=== PATIENT | male | born 1985 | race Caucasian/White ===

== ENCOUNTER 2021-08-30 11:54 | Outpatient (REF) | payer MEDICAID, SELFPAY ==
[2021-08-30 13:53] LABS: COVID-19 Test Negative (Negative)
== END 2021-08-30 11:55 | disposition home or self-care (01) ==
LOC: HO.LAB 11:54
PROVIDERS: Visit Provider Internal Medicine
DX: Z20.822 Contact with and (suspected) exposure to COVID-19 (principal)
CPT/HCPCS: 36415; 87635; C9803

== ENCOUNTER 2022-08-15 14:37 | Outpatient (REF) | payer MEDICAID, SELFPAY ==
[2022-08-15 16:09] LABS: Prothrombin Time 11.9 SEC (10.0-13.1)
[2022-08-15 17:26] LABS: Alanine Aminotransferase 193 U/L (0-40); Albumin Level 4.9 g/dL (3.5-5.0); Alkaline Phosphatase 137 U/L (39-117); Aspartate Amino Transferase 271 U/L (5-37); Bilirubin Direct 0.2 mg/dL (0.0-0.5); Bilirubin Total 0.5 mg/dL (0.0-1.0); Gamma Glutamyl Transpeptidase 810 U/L (11-51); Iron 125 mcg/dL (45-160); Lipase 27 U/L (8-78); Percent Iron Saturation 38 % (15-50); Total Iron Binding Capacity 330 mcg/dL (228-428); Total Protein 8.8 g/dL (6.5-8.0); Unsaturated Iron Binding 205 ug/dL
[2022-08-15 18:12] LABS: Ferritin 1993 ng/mL (20-250)
[2022-08-16 09:00] LABS: HBS Num1 36.46 mIU/mL (0-7.99); HBsAGNum1 0.35 S/CO (0.00-0.99); Hepatitis A Antibody IgM 0.29 Index (0-0.79); Hepatitis B Core Antibody Nonreactive (Nonreactive); Hepatitis B Surface Antigen Negative (Negative); ~HepC Num1 0.15 S/CO (0.00-0.79); ~Hepatitis A Antibody IgM Nonreactive (Nonreactive); ~Hepatitis B Surface Antibody REACTIVE (Nonreactive); ~Hepatitis C Antibody Nonreactive (Nonreactive)
[2022-08-17 13:43] LABS: Alpha Fetoprotein 3.7 ng/mL (<6.1)
[2022-08-17 14:32] LABS: Ceruloplasmin 23 mg/dL (18-36)
[2022-08-21 16:49] LABS: Smooth Muscle Antibody <20 U (<20)
[2022-08-24 11:44] LABS: Mitochondrial Antibodies NEGATIVE (NEGATIVE)
== END 2022-08-15 14:38 | disposition home or self-care (01) ==
LOC: HO.LAB 14:37
PROVIDERS: PCP Registered Nurse; Visit Provider Nurse Practitioner Family
DX: R10.9 Unspecified abdominal pain (principal); K92.2 Gastrointestinal hemorrhage, unspecified; R79.89 Other specified abnormal findings of blood chemistry; R74.8 Abnormal levels of other serum enzymes; F10.10 Alcohol abuse, uncomplicated
CPT/HCPCS: 36415; 80076; 82105; 82390; 82728; 82977; 83540; 83690; 85610; 86015; 86255; 86256; 86704; 86706; 86709; 86803; 87340; 99202

== ENCOUNTER 2022-10-13 10:50 | Outpatient (REF) | payer MEDICAID, SELFPAY ==
[2022-10-13 16:44] LABS: Urine Cytology See Pathology rpt
== END 2022-10-13 10:51 | disposition home or self-care (01) ==
LOC: HO.LAB 10:50
PROVIDERS: PCP Registered Nurse; Visit Provider Nurse Practitioner Family
DX: R31.29 Other microscopic hematuria (principal)
CPT/HCPCS: 36415; 82565; 84520; 88112; 99202

== ENCOUNTER 2022-10-13 11:20 | Outpatient (REF) | payer MEDICAID, SELFPAY ==
[2022-10-13 14:30] LABS: Blood Urea Nitrogen 12 mg/dL (9-16); Estimated Glomerular Filt Rate > 60
== END 2022-10-13 11:21 | disposition home or self-care (01) ==
LOC: HO.10HDL 11:20
PROVIDERS: Visit Provider Nurse Practitioner Family
DX: R31.29 Other microscopic hematuria (principal)
CPT/HCPCS: 36415; 82565; 84520

== ENCOUNTER → 2022-10-17 11:50 | Outpatient (BNVA) | payer MEDICAID, SELFPAY | PROVIDERS: PCP Registered Nurse; Visit Provider Nurse Practitioner Family | DX: R74.01 Elevation of levels of liver transaminase levels (principal); F10.10 Alcohol abuse, uncomplicated; R10.9 Unspecified abdominal pain; Z02.1 Encounter for pre-employment examination | CPT/HCPCS: 36415; 86706; 86787; 99212 ==

== ENCOUNTER → 2022-11-13 10:19 | Outpatient (BNVA) | payer MEDICAID, SELFPAY | PROVIDERS: PCP Registered Nurse; Visit Provider Urology | DX: R31.29 Other microscopic hematuria (principal); F17.210 Nicotine dependence, cigarettes, uncomplicated | CPT/HCPCS: 52000; 99212 ==

== ENCOUNTER 2022-11-15 07:32 | Outpatient (REF) | payer MEDICAID, SELFPAY ==
--- NOTE | ~2022-11-15 | CT_ITS ---
EXAMINATION: CT ABDOMEN AND PELVIS WITHOUT AND WITH CONTRAST CLINICAL INFORMATION: Microscopic hematuria. COMPARISON: None available. TECHNIQUE: Noncontrast CT of the abdomen and pelvis is performed followed by split bolus contrast-enhanced images using 85 mL Omnipaque 350 contrast.? Postcontrast imaging is performed during the combined nephrogram and excretion phase. Sagittal and coronal reformatted images were obtained on the technologist's workstation for both the precontrast and postcontrast phases. This CT examination was performed using dose optimization techniques as appropriate, variously including the following: *Automated exposure control *Adjustment of mA and/or kV according to patient size (this includes techniques or standardized protocols for targeted exams where dose is matched to indication/reason for exam; i.e. extremities or head) *Use of iterative reconstruction technique DLP: 826 mGy-cm. FINDINGS: LUNG BASES: The visualized lung bases are unremarkable. LIVER, GALLBLADDER, AND BILIARY TREE: The liver is normal in size, shape, and attenuation. No focal hepatic lesion or biliary ductal dilatation is present. The gallbladder is unremarkable with no evidence of radiopaque gallstones, gallbladder wall thickening, or obvious pericholecystic inflammatory changes. PANCREAS: Unremarkable. SPLEEN: Unremarkable. ADRENAL GLANDS: Unremarkable. KIDNEYS AND URETERS: Precontrast, there is no radiopaque renal calculi seen. Postcontrast, there is symmetrical cortical nephrograms without any enhancing renal mass. Left kidney measures 11.4 cm in length and right kidney measures 10.2 cm in length. BLADDER: Unremarkable. GASTROINTESTINAL TRACT: There is scattered stool, gas seen throughout the colon without any distention. No mural thickening or pericolic fat stranding. The small bowel loops are normal caliber. Appendix is normal caliber. There is good opacification of bilateral kidney pelvises and ureters from excreted contrast without any intraluminal filling defect or distention. ABDOMINAL WALL: Small umbilical hernia containing fat is noted. LYMPH NODES: No aggressive lytic or sclerotic process seen. VASCULAR: Unremarkable. PELVIC VISCERA: The prostate is normal. No bladder wall thickening seen. OSSEUS STRUCTURES: Unremarkable. CT/CT urogram IMPRESSION: No radiopaque urolith or hydroureteronephrosis. The bladder is unremarkable. Mild constipation.
[2022-11-15] MEDS: iohexoL 350 MG/ML 100 ML INFUS..BTL IV (08:17)
== END 2022-11-15 07:33 | disposition home or self-care (01) ==
LOC: HO.CT 07:32
PROVIDERS: Visit Provider Nurse Practitioner Family
DX: R31.29 Other microscopic hematuria (principal)
CPT/HCPCS: 74178; Q9967

== ENCOUNTER 2022-11-24 07:47 | Outpatient (REF) | payer MEDICAID, SELFPAY ==
--- NOTE | ~2022-11-24 | US_ITS ---
EXAMINATION: US COMPLETE ABDOMEN WITH LIVER ELASTOGRAPHY CLINICAL INFORMATION: Transaminitis. COMPARISON: None available. TECHNIQUE: Real-time imaging of the abdominal viscera. Noninvasive ultrasound liver fibrosis assessment is performed using Sarita ElastPQ point quantification shear wave elastography (2D-SWE) with a C5-2 MHz transducer. Multiple elastography samples are obtained. FINDINGS: PANCREAS: Normal. The visualized pancreatic head and body are normal in appearance. The remainder of the pancreas is obscured from visualization by the overlying bowel gas. ABDOMINAL AORTA: The proximal, middle, and distal aortic segments are normal in caliber. INFERIOR VENA CAVA: Visualized portions are normal. LIVER: The liver demonstrates normal size, contour and increased echogenicity. No focal lesion or intrahepatic biliary duct dilatation. The right lobe measures 17.1 cm in length. The left lobe measures 12.4 cm in length. Portal flow is hepatopedal. Shear wave liver elastography median stiffness is 2.32 m/s (reference: normal median stiffness is 1.3 m/s or less). IQR/median stiffness to assess sampling precision is 0.06 (reference: good quality data set is IQR/median stiffness of 0.15 or less). GALLBLADDER: Gallbladder wall thickness is 0.2 cm. The gallbladder is physiologically distended without evidence of stones, sludge, polyps, wall thickening or pericholecystic fluid. COMMON BILE DUCT: Normal in caliber measuring 0.4 cm in diameter. RIGHT KIDNEY: Normal. No hydronephrosis. No renal calculi or focal parenchymal lesions. The kidney measures 10.3 cm in maximum dimension. LEFT KIDNEY: Normal. No hydronephrosis. No renal calculi or focal parenchymal lesions. The kidney measures 11.7 cm in maximum dimension. SPLEEN: Normal. The spleen measures 13.1 cm in maximum dimension. Mildly enlarged. FREE FLUID: None. US/US abdomen comp w elastography IMPRESSION: 1. Mild hepatic steatosis without focal lesion. Mild splenomegaly measuring 13.1 cm. 2. Liver elastography: Median liver stiffness measures 2.32 m/s suggestive of ACLD ruled in. REFERENCE: Society of Radiologists in Ultrasound Liver Stiffness Thresholds (2019): LIVER STIFFNESS THRESHOLDS: *Liver Stiffness equal or less than 1.3 m/s: High probability of being normal. *Liver Stiffness less than 1.7 m/s: In the absence of other known clinical signs, rules out compensated advanced chronic liver disease. *Liver Stiffness 1.7-2.1 m/s: Suggestive of compensated advanced chronic liver disease but need further test for confirmation. *Liver Stiffness over 2.1 m/s: Rules in compensated advanced chronic liver disease. *Liver Stiffness over 2.4 m/s: Suggestive of clinically significant portal hypertension. QUALITY OF DATA SET: *IQR/Median value equal or less than 0.15 implies a quality data set. *IQR/Median value over 0.15 implies a poor quality data set. SIGNIFICANT CHANGE FROM PRIOR EXAM: Significant change if liver stiffness measurement is 10% or greater from prior exam. OTHER CONSIDERATIONS: The stage of liver fibrosis may be overestimated in the setting of acute hepatitis, liver inflammation, elevated liver function tests, hepatic vascular congestion, obstructive cholestasis, non-fasting state, and infiltrative diseases such as amyloidosis and lymphoma. In some patients with NAFLD, the liver stiffness thresholds for compensated advanced chronic liver disease may be lower. In causes other than viral hepatitis and NAFLD, liver stiffness thresholds are not well established.
== END 2022-11-24 07:48 | disposition home or self-care (01) ==
LOC: HO.US 07:47
PROVIDERS: PCP Registered Nurse; Visit Provider Nurse Practitioner Family
DX: R79.89 Other specified abnormal findings of blood chemistry (principal)
CPT/HCPCS: 76705; 76981

== ENCOUNTER → 2023-01-01 09:46 | Outpatient (BNVA) | payer MEDICAID, SELFPAY | PROVIDERS: PCP Registered Nurse; Visit Provider Nurse Practitioner Family | DX: K70.0 Alcoholic fatty liver (principal); F10.10 Alcohol abuse, uncomplicated; R74.01 Elevation of levels of liver transaminase levels | CPT/HCPCS: 99212 ==

== ENCOUNTER 2023-01-11 06:30 | Outpatient (REF) | payer MEDICAID, SELFPAY ==
[2023-01-11 07:07] LABS: Estimated Average Glucose 91 mg/dL; Hemoglobin A1c % 4.8 %
[2023-01-11 07:17] LABS: Cholesterol 242 mg/dL; HDL Cholesterol 53 mg/dL; LDL Cholesterol Calculated 118 mg/dl; Triglycerides 358 mg/dL
[2023-01-11 07:21] LABS: Iron 169 mcg/dL (45-160); Percent Iron Saturation 49 % (15-50); Total Iron Binding Capacity 345 mcg/dL (228-428); Unsaturated Iron Binding 176 ug/dL
[2023-01-11 07:37] LABS: Ferritin 379 ng/mL (20-250)
== END 2023-01-11 06:31 | disposition home or self-care (01) ==
LOC: HO.LAB 06:30
PROVIDERS: PCP Registered Nurse; Visit Provider Registered Nurse
DX: E66.09 Other obesity due to excess calories (principal); Z68.31 Body mass index [BMI] 31.0-31.9, adult; R74.01 Elevation of levels of liver transaminase levels
CPT/HCPCS: 36415; 80061; 82728; 83036; 83540

== ENCOUNTER 2023-07-04 13:04 | Outpatient (REF) | payer MEDICAID, SELFPAY ==
[2023-07-04 16:11] LABS: Basophils Percent Auto 0.2 % (0-2); Eosinophils Percent Auto 0.2 % (0-4); Hematocrit 36.3 % (42.0-52.0); Hemoglobin 12.3 g/dl (14.0-18.0); Lymphocytes Absolute Auto 2.6 X10*3/uL (1.2-4.9); Lymphocytes Percent Auto 61.5 % (20-40); MANUAL DIFF FLAG SCAN; Mean Corpuscular HGB Conc 33.9 g/dl (31.0-36.0); Mean Corpuscular Hemoglobin 32.4 pg (27.0-33.0); Mean Corpuscular Volume 95.5 fL (80.0-98.0); Mean Platelet Volume 9.7 fL (9.4-12.4); Monocytes Absolute Auto 0.4 X10*3/uL (0.1-1.2); Monocytes Percent Auto 9.4 % (2-11); Neutrophils Absolute Auto 1.2 x10*3/uL (2.0-8.3); Neutrophils Percent Auto 28.7 % (45-73); Platelet Count 238 X10*3/uL (160-400); Red Cell Distribution Width 11.8 % (11.0-16.0); SCAN SMEAR FLAG 1; White Blood Count 4.2 X10*3/uL (4.8-10.8)
[2023-07-04 16:25] LABS: Alanine Aminotransferase 93 U/L (0-40); Albumin Level 4.6 g/dL (3.5-5.0); Alkaline Phosphatase 113 U/L (39-117); Anion Gap 15 (12-20); Aspartate Amino Transferase 102 U/L (5-37); Bilirubin Total 0.3 mg/dL (0.0-1.0); Blood Urea Nitrogen 7 mg/dL (9-16); Calcium 10.1 mg/dL (8.4-10.2); Carbon Dioxide 24 mmol/L (22-29); Chloride 104 mmol/L (96-108); Estimated Glomerular Filt Rate > 60; Glucose Random 95 mg/dL (60-115); Sodium 139 mmol/L (135-145); Total Protein 8.4 g/dL (6.5-8.0)
[2023-07-04 16:49] LABS: SLIDE REVIEW VERIFIED
[2023-07-05 10:39] LABS: Absolute CD3 Count 2242 cells/uL (840-3060); Absolute CD4 Count 791 cells/uL (490-1740); Absolute CD8 Count 1336 cells/uL (180-1170); Absolute Lymphocytes 2446 cells/uL (850-3900); CD4 CD8 Ratio 0.59 (0.86-5.00); Percent CD3 Cells 92 % (57-85); Percent CD4 Cells 32 % (30-61); Percent CD8 Cells 55 % (12-42)
[2023-07-06 13:18] LABS: RPR Rapid Plasma Reagin REACTIVE (NON-REACTIVE)
[2023-07-06 16:29] LABS: HIV RNA PCR Qn Copies NOT DETECTED copies/mL (NOT DETECTED); HIV RNA PCR Qn Log Copies NOT DETECTED (NOT DETECTED)
[2023-07-07 00:08] LABS: TS Negative Control Passed; TS Panel A 0; TS Panel B 0; TS Positive Control Passed; TSpotTB Negative (Negative)
== END 2023-07-04 13:05 | disposition home or self-care (01) ==
LOC: HO.HHCL 13:04
PROVIDERS: Visit Provider Internal Medicine
DX: B20 Human immunodeficiency virus [HIV] disease (principal)
CPT/HCPCS: 36415; 80053; 85025; 86359; 86360; 86481; 86592; 86593; 87536

== ENCOUNTER 2023-07-06 09:10 | Outpatient (REF) | payer MEDICAID, SELFPAY ==
[2023-07-06 11:30] LABS: Appearance Urine Clear; Color Urine Yellow; Glucose Urine UA Negative (Negative); Leukocyte Esterase Urine Negative (Negative); Nitrite Urine Negative (Negative); PH 6.5 (5.0-9.0); Specific Gravity - Urine <= 1.005 (1.005-1.025); UMIC TRIGGER UA YES; Urine Blood Large (3+) (Negative); Urine Ketones Negative (Negative); Urine Protein Negative (Neg-Trace)
[2023-07-06 11:34] LABS: Bacteria Urine None Seen (None Seen); Hyaline Casts Urine 0-2 /LPF (0-2); RBC Urine >20 /HPF (0-2); Squamous Epithelial Cell Urine 0-2 /HPF (0-2); WBC Urine 0-5 /HPF (0-5)
[2023-07-06 12:00] LABS: Cholesterol 227 mg/dL (<200); HDL Cholesterol 65 mg/dL (>40); LDL Cholesterol Calculated 130 mg/dL (<100); Triglycerides 162 mg/dL (<150)
[2023-07-06 12:48] LABS: Reflex LDLD? No
== END 2023-07-06 09:11 | disposition home or self-care (01) ==
LOC: HO.HHCL 09:10
PROVIDERS: Visit Provider Internal Medicine
DX: B20 Human immunodeficiency virus [HIV] disease (principal)
CPT/HCPCS: 36415; 80061; 81001

== ENCOUNTER 2024-03-07 10:16 | Outpatient (REF) | payer MEDICAID, SELFPAY ==
[2024-03-07 11:14] LABS: MANUAL DIFF FLAG NO
[2024-03-07 11:29] LABS: Basophils Percent Auto 0.2 % (0-2); Eosinophils Percent Auto 0.2 % (0-4); Hematocrit 36.2 % (42.0-52.0); Hemoglobin 12.8 g/dl (14.0-18.0); Imm Gran Abs Auto 0.01 X10*3/uL (0.00-0.03); Imm Gran Pct Auto 0.2 % (0.0-0.4); Lymphocytes Absolute Auto 2.9 X10*3/uL (1.2-4.9); Lymphocytes Percent Auto 58.3 % (20-40); Mean Corpuscular HGB Conc 35.4 g/dl (31.0-36.0); Mean Corpuscular Hemoglobin 33.8 pg (27.0-33.0); Mean Corpuscular Volume 95.5 fL (80.0-98.0); Monocytes Absolute Auto 0.4 X10*3/uL (0.1-1.2); Neutrophils Absolute Auto 1.7 x10*3/uL (2.0-8.3); Neutrophils Percent Auto 33.1 % (45-73); Platelet Count 159 X10*3/uL (160-400); Red Blood Count 3.79 X10*6/uL (4.60-5.80); Red Cell Distribution Width 12.4 % (11.0-16.0)
[2024-03-07 11:38] LABS: Alanine Aminotransferase 97 U/L (0-40); Albumin Level 4.7 g/dL (3.5-5.0); Alkaline Phosphatase 127 U/L (39-117); Anion Gap 17 (12-20); Aspartate Amino Transferase 182 U/L (5-37); Bilirubin Total 0.7 mg/dL (0.0-1.0); Blood Urea Nitrogen 6 mg/dL (9-16); Calcium 10.2 mg/dL (8.4-10.2); Carbon Dioxide 24 mmol/L (22-29); Chloride 98 mmol/L (96-108); Estimated Glomerular Filt Rate > 60; Glucose Random 96 mg/dL (60-115); Potassium 4.3 mmol/L (3.3-5.1); Sodium 135 mmol/L (135-145); Total Protein 8.9 g/dL (6.5-8.0)
[2024-03-07 14:00] LABS: CT PCR NOT DETECTED (Not Detect.); NG PCR NOT DETECTED (Not Detect.)
[2024-03-09 15:54] LABS: HIV RNA PCR Qn Copies 94 copies/mL (NOT DETECTED); HIV RNA PCR Qn Log Copies 1.97 (NOT DETECTED)
[2024-03-10 22:24] LABS: Absolute CD3 Count 2753 cells/uL (840-3060); Absolute CD4 Count 891 cells/uL (490-1740); Absolute CD8 Count 1820 cells/uL (180-1170); Absolute Lymphocytes 3056 cells/uL (850-3900); CD4 CD8 Ratio 0.49 (0.86-5.00); Percent CD3 Cells 90 % (57-85); Percent CD4 Cells 29 % (30-61); Percent CD8 Cells 60 % (12-42)
== END 2024-03-07 10:17 | disposition home or self-care (01) ==
LOC: HO.HHCL 10:16
PROVIDERS: Visit Provider Internal Medicine
DX: Z21 Asymptomatic human immunodeficiency virus [HIV] infection status (principal)
CPT/HCPCS: 36415; 80053; 85025; 86359; 86360; 87491; 87536; 87591

== ENCOUNTER 2024-07-10 16:33 | Outpatient (REF) | payer MEDICAID, SELFPAY ==
[2024-07-16 15:53] LABS: C. Trachomatis RNA TMA, Throat NOT DETECTED; N. gonorrhoeae RNA TMA, Throat NOT DETECTED
[2024-07-16 16:13] LABS: C.Trachomatis RNA TMA, Rectal NOT DETECTED; N.Gonorrhoeae RNA TMA, Rectal NOT DETECTED
== END 2024-07-10 16:34 | disposition home or self-care (01) ==
LOC: HO.HHCLNP 16:33
PROVIDERS: Visit Provider Student in an Organized Health Care Education/Training Program
DX: Z00.00 Encounter for general adult medical examination without abnormal findings (principal)
CPT/HCPCS: 87491; 87591; 88112

== ENCOUNTER 2024-07-17 09:16 | Outpatient (REF) | payer MEDICAID, SELFPAY ==
[2024-07-17 11:20] LABS: Hematocrit 40.4 % (42.0-52.0); Hemoglobin 13.5 g/dl (14.0-18.0); Mean Corpuscular HGB Conc 33.4 g/dl (31.0-36.0); Mean Corpuscular Volume 98.8 fL (80.0-98.0); Mean Platelet Volume 9.1 fL (9.4-12.4); Platelet Count 265 X10*3/uL (160-400); Red Blood Count 4.09 X10*6/uL (4.60-5.80); Red Cell Distribution Width 11.6 % (11.0-16.0); White Blood Count 5.5 X10*3/uL (4.8-10.8)
[2024-07-17 11:40] LABS: Alanine Aminotransferase 61 U/L (0-40); Albumin Level 4.2 g/dL (3.5-5.0); Alkaline Phosphatase 120 U/L (39-117); Anion Gap 11 (12-20); Aspartate Amino Transferase 126 U/L (5-37); Bilirubin Total 0.3 mg/dL (0.0-1.0); Blood Urea Nitrogen 5 mg/dL (9-16); Carbon Dioxide 32 mmol/L (22-29); Chloride 104 mmol/L (96-108); Cholesterol 222 mg/dL (<200); Estimated Glomerular Filt Rate > 60; Glucose Random 95 mg/dL (60-115); HDL Cholesterol 44 mg/dL (>40); LDL Cholesterol Calculated 132 mg/dL (<100); Potassium 4.1 mmol/L (3.3-5.1); Sodium 143 mmol/L (135-145); Total Protein 8.3 g/dL (6.5-8.0); Triglycerides 233 mg/dL (<150)
[2024-07-17 11:47] LABS: HBS Num1 39.33 mIU/mL (0-7.99); HBsAGNum1 0.31 S/CO (0.00-0.99); Hepatitis B Core Antibody Nonreactive (Nonreactive); Hepatitis B Surface Antigen Negative (Negative); ~HepC Num1 0.26 S/CO (0.00-0.79); ~Hepatitis B Surface Antibody REACTIVE (Nonreactive); ~Hepatitis C Antibody Nonreactive (Nonreactive)
[2024-07-17 11:53] LABS: Syphilis Screen Reactive (Nonreactive)
[2024-07-17 12:01] LABS: TSH reflex Free T4 1.97 uIU/mL (0.32-4.0); Vitamin D 25-OH Total 75.9 ng/mL (>30)
[2024-07-17 12:04] LABS: Folate 11.4 ng/mL (> or = 4.0); Vitamin B12 420 pg/mL (200-900)
[2024-07-17 12:14] LABS: Creatinine Urine 20.81 mg/dL; Microalbumin Urine < 5.0 mg/L
[2024-07-17 14:12] LABS: Estimated Average Glucose 88 mg/dL; Hemoglobin A1C 93.4733 umol/L; Hemoglobin A1c % 4.7 % (<6.0); Total Hemoglobin (HGBA1C) 3403.6845 umol/L
[2024-07-17 18:46] LABS: CT PCR NOT DETECTED (Not Detect.); NG PCR NOT DETECTED (Not Detect.)
[2024-07-25 08:07] LABS: RPR Quantitative Reactive 1:1 (Nonreactive)
[2024-07-25 08:08] LABS: T.Pallidum Particle Agg Test Reactive (Nonreactive)
== END 2024-07-17 09:17 | disposition home or self-care (01) ==
LOC: HO.HHCL 09:16
PROVIDERS: Visit Provider Student in an Organized Health Care Education/Training Program
DX: Z00.00 Encounter for general adult medical examination without abnormal findings (principal)
CPT/HCPCS: 36415; 80053; 80061; 82043; 82306; 82570; 82607; 82746; 83036; 84443; 85027; 86592; 86704; 86706; 86780; 86803; 87340; 87491; 87591

== ENCOUNTER 2024-07-24 07:57 | Outpatient (REF) | payer MEDICAID, SELFPAY | END 2024-07-24 07:58 | disposition home or self-care (01) | LOC: HO.US 07:57 | PROVIDERS: PCP Student in an Organized Health Care Education/Training Program; Visit Provider Student in an Organized Health Care Education/Training Program | DX: F10.10 Alcohol abuse, uncomplicated (principal) | CPT/HCPCS: 76700; 76981 ==

== ENCOUNTER 2024-09-02 08:32 | Outpatient (REF) | payer MEDICAID, SELFPAY ==
[2024-09-02 11:19] LABS: Basophils Percent Auto 0.6 % (0-2); Eosinophils Percent Auto 0.4 % (0-4); Hematocrit 36.3 % (42.0-52.0); Hemoglobin 12.5 g/dl (14.0-18.0); Imm Gran Abs Auto 0.01 X10*3/uL (0.00-0.03); Imm Gran Pct Auto 0.2 % (0.0-0.4); Lymphocytes Absolute Auto 3.3 X10*3/uL (1.2-4.9); Lymphocytes Percent Auto 60.3 % (20-40); MANUAL DIFF FLAG SCAN; Mean Corpuscular HGB Conc 34.4 g/dl (31.0-36.0); Mean Corpuscular Hemoglobin 33.8 pg (27.0-33.0); Mean Corpuscular Volume 98.1 fL (80.0-98.0); Mean Platelet Volume 9.3 fL (9.4-12.4); Monocytes Absolute Auto 0.4 X10*3/uL (0.1-1.2); Neutrophils Absolute Auto 1.7 x10*3/uL (2.0-8.3); Neutrophils Percent Auto 31.5 % (45-73); Platelet Count 265 X10*3/uL (160-400); Red Cell Distribution Width 12.9 % (11.0-16.0); SCAN SMEAR FLAG 1; White Blood Count 5.4 X10*3/uL (4.8-10.8)
[2024-09-02 11:36] LABS: Appearance Urine Clear; Color Urine Yellow; Glucose Urine UA Negative (Negative); Leukocyte Esterase Urine Negative (Negative); Nitrite Urine Negative (Negative); PH 6.5 (5.0-9.0); Specific Gravity - Urine <= 1.005 (1.005-1.025); UMIC TRIGGER UACC YES; Urine Blood Small (1+) (Negative); Urine Ketones Negative (Negative); Urine Protein Negative (Neg-Trace)
[2024-09-02 11:51] LABS: Bacteria Urine None Seen (None Seen); Hyaline Casts Urine 0-2 /LPF (0-2); Squamous Epithelial Cell Urine 0-2 /HPF (0-2); WBC Urine 0-5 /HPF (0-5)
[2024-09-02 11:57] LABS: SLIDE REVIEW VERIFIED
[2024-09-02 12:03] LABS: Albumin Level 4.3 g/dL (3.5-5.0); Alkaline Phosphatase 158 U/L (39-117); Anion Gap 12 (12-20); Aspartate Amino Transferase 212 U/L (5-37); Bilirubin Total 0.4 mg/dL (0.0-1.0); Blood Urea Nitrogen 8 mg/dL (9-16); Calcium 9.2 mg/dL (8.4-10.2); Carbon Dioxide 29 mmol/L (22-29); Chloride 105 mmol/L (96-108); Estimated Glomerular Filt Rate > 60; Glucose Random 96 mg/dL (60-115); Potassium 4.2 mmol/L (3.3-5.1); Sodium 142 mmol/L (135-145); Total Protein 8.5 g/dL (6.5-8.0)
[2024-09-02 12:29] LABS: Alanine Aminotransferase 136 U/L (0-40)
[2024-09-03 13:13] LABS: HIV RNA PCR Qn Copies NOT DETECTED copies/mL (NOT DETECTED); HIV RNA PCR Qn Log Copies NOT DETECTED (NOT DETECTED)
[2024-09-05 11:43] LABS: TS Negative Control Passed; TS Panel A 2; TS Panel B 0; TS Positive Control Passed; TSpotTB Negative (Negative)
[2024-09-05 15:59] LABS: Absolute CD3 Count 2913 cells/uL (840-3060); Absolute CD4 Count 915 cells/uL (490-1740); Absolute CD8 Count 1824 cells/uL (180-1170); Absolute Lymphocytes 3284 cells/uL (850-3900); Percent CD3 Cells 89 % (57-85); Percent CD4 Cells 28 % (30-61); Percent CD8 Cells 56 % (12-42)
== END 2024-09-02 08:33 | disposition home or self-care (01) ==
LOC: HO.HHCL 08:32
PROVIDERS: Visit Provider Internal Medicine
DX: Z21 Asymptomatic human immunodeficiency virus [HIV] infection status (principal)
CPT/HCPCS: 36415; 80053; 81001; 85025; 86359; 86360; 86481; 87536

== ENCOUNTER 2025-02-16 09:15 | Outpatient (REF) | payer MEDICAID, SELFPAY ==
[2025-02-16 16:50] LABS: Urine Cytology See Pathology rpt
== END 2025-02-16 09:16 | disposition home or self-care (01) ==
LOC: HO.LAB 09:15
PROVIDERS: PCP Student in an Organized Health Care Education/Training Program; Visit Provider Urology
DX: R31.29 Other microscopic hematuria (principal); Z13.9 Encounter for screening, unspecified
CPT/HCPCS: 81003; 88112

== ENCOUNTER 2025-02-16 09:15 | Outpatient (AMB) | payer MEDICAID, SELFPAY ==
--- NOTE | 2025-02-16 09:36 | MHC.OFFVIS ---
Intake Visit Reasons: microscopic hematuria Intake Note: Patient presents to office for microscopic hematuria Urology medications: none blood thinners: none Allergies: penicillan and augmentin? Real Estate Investment Analyst Required: No Accompanied by: Self / Same As Patient Allergies Penicillins [PENICILLINS] Allergy (Severe, Verified 02/16/25 09:37) DIFFICULTY BREATHING penicillin V Allergy (Unknown, Verified 02/16/25 09:37) Unknown From AUGMENTIN Allergy (Unknown, Uncoded 01/01/23 10:01) UNKNOWN From Augmentin Allergy (Unknown, Uncoded 01/01/23 10:01) UNKNOWN HPI Comments Details: History of Present Illness - The patient is a 39-year-old male presenting with hematuria. - Hematuria is not visible during urination but detected upon testing. - Cystoscopy performed two years ago showed no abnormalities. - Family history of bladder cancer with grandfather recently diagnosed. Urinary Symptoms Review - Hematuria detected upon testing, not visible during urination. - Nocturia reported, with the patient getting up twice at night to urinate. - No dysuria or urinary straining reported. Results - Previous cystoscopy two years ago showed no abnormalities. Discussion Notes I discussed with the patient the plan to send the urine sample for cytology and order a new CT scan to evaluate the kidneys and bladder. I explained the process of scheduling these tests and the importance of checking kidney function with blood work before the CT scan with IV contrast. We also reviewed the previous cystoscopy results, which were normal, and addressed the family history of bladder cancer. I ensured the patient understood the follow-up steps and encouraged him to ask any questions. Plan - Order urine cytology to evaluate for malignant cells. - Schedule a CT scan with IV contrast to assess the kidneys and bladder. - Conduct blood work to evaluate kidney function prior to the CT scan. - Review previous cystoscopy results, which were normal, and consider repeat cystoscopy if necessary. Patient Instructions - Follow up with the lab for urine cytology results. - Schedule and complete the CT scan as instructed. - Complete blood work to check kidney function before the CT scan. - Report any new or worsening symptoms to the clinic. Patient was informed and verbally consented to the use of an ambient scribe for clinic note documentation during this visit. [facility] Medical History HIV (human immunodeficiency virus infection) ETOH abuse Transaminitis Family History Mother HTN (hypertension) Cancer Social History Household Members: Other Alcohol intake: current Patient Tobacco Use Status: Former Tobacco user Cigarettes Per Day: 2 Results AMB Urinalysis, Automated UA Leukoctes 0 Cesar/uL Last Edit by Roxann Holman on 02/16/25 13:42 UA Nitrite Negative Last Edit by Roxann Holman on 02/16/25 13:42 UA Urobilinogen 70 mg/dL Last Edit by Roxann Holman on 02/16/25 13:42 UA Protein 1 mg/dL Last Edit by Roxann Holman on 02/16/25 13:42 UA pH 6.0 Last Edit by Roxann Holman on 02/16/25 13:42 UA Blood 200 Yimi/uL Last Edit by Roxann Holman on 02/16/25 13:42 UA Specific [place] 1.015 Last Edit by Roxann Holman on 02/16/25 13:42 UA Ketone Negative Last Edit by Roxann Holman on 02/16/25 13:42 UA Bilirubin 0 mg/dL Last Edit by Roxann Holman on 02/16/25 13:42 UA Glucose 0 mg/dL Last Edit by Roxann Holman on 02/16/25 13:42 Results Reviewed Results Reviewed: Laboratory Last Values Urine pH (Auto) 6.0 02/16/25 13:37 Specific [place] (Auto) 1.015 02/16/25 13:37 Urine Protein (Auto) 1 mg/dL 02/16/25 13:37 Glucose (UA)(Auto) 0 mg/dL 02/16/25 13:37 Urine Ketones (Auto) Negative 02/16/25 13:37 Urine Blood (Auto) 200 Yimi/uL 02/16/25 13:37 Urine Nitrite (Auto) Negative 02/16/25 13:37 Urine Bilirubin (Auto) 0 mg/dL 02/16/25 13:37 Urine Urobilinogen (Auto) 70 mg/dL 02/16/25 13:37 Leukocyte Esterase (Auto) 0 Cesar/uL 02/16/25 13:37 Assessment & Plan Assessment & Plan Orders: Orders AMB Urinalysis Automated Today Z13.9 - Encounter for screening, unspecified Urine Cytology Today R31.29 - Other microscopic hematuria Coding
== END 2025-02-16 10:06 | disposition home or self-care (01) ==
LOC: HO.HUSH 09:16
PROVIDERS: PCP Student in an Organized Health Care Education/Training Program; Visit Provider Urology
DX: Z13.9 Encounter for screening, unspecified (principal)

== ENCOUNTER 2025-02-16 10:28 | Outpatient (REF) | payer MEDICAID, SELFPAY ==
[2025-02-16 11:23] LABS: MANUAL DIFF FLAG NO
[2025-02-16 11:35] LABS: Basophils Percent Auto 0.5 % (0-2); Eosinophils Percent Auto 0.5 % (0-4); Hematocrit 36.3 % (42.0-52.0); Hemoglobin 12.5 g/dl (14.0-18.0); Imm Gran Abs Auto 0.01 X10*3/uL (0.00-0.03); Imm Gran Pct Auto 0.2 % (0.0-0.4); Lymphocytes Absolute Auto 1.8 X10*3/uL (1.2-4.9); Lymphocytes Percent Auto 43.3 % (20-40); Mean Corpuscular HGB Conc 34.4 g/dl (31.0-36.0); Mean Corpuscular Hemoglobin 32.2 pg (27.0-33.0); Mean Corpuscular Volume 93.6 fL (80.0-98.0); Mean Platelet Volume 10.6 fL (9.4-12.4); Monocytes Absolute Auto 0.4 X10*3/uL (0.1-1.2); Monocytes Percent Auto 10.1 % (2-11); NRBC Pct Auto 0.5 /100WBC (0.0-0.2); Neutrophils Absolute Auto 1.9 x10*3/uL (2.0-8.3); Neutrophils Percent Auto 45.4 % (45-73); Platelet Count 123 X10*3/uL (160-400); Red Blood Count 3.88 X10*6/uL (4.60-5.80); Red Cell Distribution Width 13.1 % (11.0-16.0); White Blood Count 4.3 X10*3/uL (4.8-10.8)
[2025-02-16 11:42] LABS: Alanine Aminotransferase 56 U/L (0-40); Albumin Level 4.2 g/dL (3.5-5.0); Alkaline Phosphatase 198 U/L (39-117); Anion Gap 11 (12-20); Aspartate Amino Transferase 137 U/L (5-37); Bilirubin Direct 0.7 mg/dL (0.0-0.5); Bilirubin Total 1.4 mg/dL (0.0-1.0); Blood Urea Nitrogen 6 mg/dL (9-16); Calcium 9.7 mg/dL (8.4-10.2); Carbon Dioxide 24 mmol/L (22-29); Chloride 104 mmol/L (96-108); Cholesterol 211 mg/dL (<200); Estimated Glomerular Filt Rate > 60; Glucose Random 97 mg/dL (60-115); HDL Cholesterol 40 mg/dL (>40); HDL Cholesterol 41 mg/dL (>40); LDL Cholesterol Calculated 145 mg/dL (<100); Potassium 4.1 mmol/L (3.3-5.1); Sodium 135 mmol/L (135-145); Total Protein 8.6 g/dL (6.5-8.0); Triglycerides 129 mg/dL (<150); Triglycerides 131 mg/dL (<150)
[2025-02-16 12:00] LABS: Syphilis Screen Reactive (Nonreactive)
[2025-02-16 12:51] LABS: CT PCR NOT DETECTED (Not Detect.); NG PCR NOT DETECTED (Not Detect.)
[2025-02-17 21:49] LABS: HIV RNA PCR Qn Copies 41 copies/mL (NOT DETECTED); HIV RNA PCR Qn Log Copies 1.61 (NOT DETECTED)
[2025-02-19 01:54] LABS: TS Negative Control Passed; TS Panel A 2; TS Panel B 0; TS Positive Control Passed; TSpotTB Negative (Negative)
[2025-02-19 17:13] LABS: Absolute CD3 Count 1706 cells/uL (840-3060); Absolute CD4 Count 746 cells/uL (490-1740); Absolute CD8 Count 930 cells/uL (180-1170); Absolute Lymphocytes 1882 cells/uL (850-3900); Percent CD3 Cells 91 % (57-85); Percent CD4 Cells 40 % (30-61); Percent CD8 Cells 49 % (12-42)
[2025-02-23 13:19] LABS: RPR Quantitative Reactive 1:2 (Nonreactive)
[2025-02-23 13:20] LABS: T.Pallidum Particle Agg Test Inconclusive (Nonreactive)
== END 2025-02-16 10:29 | disposition home or self-care (01) ==
LOC: HO.HHCL 10:28
PROVIDERS: Nurse Practitioner Primary Care; Visit Provider Internal Medicine
DX: Z21 Asymptomatic human immunodeficiency virus [HIV] infection status (principal); R74.01 Elevation of levels of liver transaminase levels; E78.5 Hyperlipidemia, unspecified; Z13.9 Encounter for screening, unspecified
CPT/HCPCS: 36415; 80053; 80061; 82248; 85025; 86359; 86360; 86481; 86592; 86780; 87491; 87536; 87591

== ENCOUNTER 2025-03-13 08:19 | Outpatient (REF) | payer MEDICAID, SELFPAY ==
--- NOTE | ~2025-03-13 | CT_ITS ---
EXAMINATION: CT ABDOMEN AND PELVIS WITHOUT AND WITH CONTRAST CLINICAL INFORMATION: Microscopic hematuria. COMPARISON: None available. TECHNIQUE: Noncontrast CT of the abdomen and pelvis is performed followed by split bolus contrast-enhanced images using 85 mL Omnipaque 350 contrast. Postcontrast imaging is performed during the combined nephrogram and excretion phase. Sagittal and coronal reformatted images were obtained on the technologist's workstation for both the precontrast and postcontrast phases. This CT examination was performed using dose optimization techniques as appropriate, variously including the following: *Automated exposure control *Adjustment of mA and/or kV according to patient size (this includes techniques or standardized protocols for targeted exams where dose is matched to indication/reason for exam; i.e. extremities or head) *Use of iterative reconstruction technique. DLP: 1171 mGy centimeter. FINDINGS: LUNG BASES: No acute airspace disease or gross pulmonary nodules. LIVER, GALLBLADDER, AND BILIARY TREE: Liver measures 24 cm. Heterogeneous enhancement pattern with decreased air cells 5 enhancing parenchyma. The main portal vein and intrahepatic portion of the IVC are patent. No pericholecystic fluid collection or gallbladder wall thickening. No intrahepatic or extrahepatic biliary ductal dilatation. PANCREAS: No focal mass. No main pancreatic ductal dilatation. No peripancreatic fluid collection. SPLEEN: 14 cm. No focal lesion. ADRENAL GLANDS: No nodular lesions. KIDNEYS AND URETERS: No hydronephrosis. No nephrolithiasis. No enhancing renal mass. Normal urinary excretion into the collecting system. The ureters are not dilated. There is no complete IV contrast identified in the distal left ureter. BLADDER: Fluid-filled. No gross wall thickening. GASTROINTESTINAL TRACT: Appendix is normal. Abundant stool, large intestine. No intestinal obstruction pattern. No gross intestinal wall thickening. No pneumatosis intestinalis. No pneumoperitoneum. No ascites. No fluid collections, peritoneal cavity. ABDOMINAL WALL: There is disc abdominal rectus muscles. No gross umbilical hernia. LYMPH NODES: Nonspecific prominent mesenteric and retroperitoneum. VASCULAR: Prominent vessels in the distal intrathoracic paraesophageal gastroesophageal junction. Prominent and patent umbilical vein. No aneurysm or dissection abdominal aorta. No gross calcified plaques. PELVIC VISCERA: Not enlarged prostate gland. OSSEUS STRUCTURES: Multilevel mild thoracolumbar spondylosis without acute fracture or listhesis. Mild degenerative changes in the coxofemoral joints without acute fracture or dislocation. No gross lytic or blastic lesions. CT/CT urogram IMPRESSION: No hydronephrosis or nephrolithiasis or gross renal mass. Hepatosplenomegaly and probable gastroesophageal varices and patent umbilical vein concerning for cirrhosis without ascites and or portal hypertension.. Electronically signed by: Faustino Fried MD 03/13/2025 09:52 AM EDT
[2025-03-13] MEDS: iohexoL 350 MG/ML 100 ML INFUS..BTL IV (09:32)
== END 2025-03-13 08:20 | disposition home or self-care (01) ==
LOC: HO.CT 08:19
PROVIDERS: PCP Student in an Organized Health Care Education/Training Program; Visit Provider Urology
DX: R31.29 Other microscopic hematuria (principal)
CPT/HCPCS: 74178; Q9967

== ENCOUNTER → 2025-03-13 08:25 | Outpatient (BNV) | payer MEDICAID, SELFPAY | PROVIDERS: PCP Student in an Organized Health Care Education/Training Program; Visit Provider Radiology Diagnostic Radiology | DX: R16.2 Hepatomegaly with splenomegaly, not elsewhere classified (principal) | CPT/HCPCS: 74178 ==

== ENCOUNTER 2025-04-24 13:17 | Outpatient (AMB) | payer MEDICAID, SELFPAY ==
--- NOTE | 2025-04-24 13:34 | MHC.OFFVIS ---
Intake Visit Reasons: cysto/CT/labs Intake Note: Patient presents to office for cysto/CT/Labs 03/13 CT Urogram Urology medications: none blood thinners: none Allergies: penicillan and augmentin? Lot # [id number] Exp: 11/27/27 Mysql Database Developer Required: No Accompanied by: Self / Same As Patient Allergies Penicillins (PENICILLINS) Allergy (Severe, Verified 04/24/25 13:54) DIFFICULTY BREATHING penicillin V Allergy (Unknown, Verified 04/24/25 13:54) Unknown From AUGMENTIN Allergy (Unknown, Uncoded 01/01/23 10:01) UNKNOWN From Augmentin Allergy (Unknown, Uncoded 01/01/23 10:01) UNKNOWN HPI Comments Details: 04/24/25--Here for office cystoscopy. HIV positive. CT Urogram- 03/2025- urinary tract WNL. 02/17/25-Urine cytology- Neg. Cystoscopy findings: Bladder mucosa, no suspicious lesions visualized. Cont to monitor. FU one year with Nurse practitioner. 02/16/25 History of Present Illness - The patient is a 39-year-old male presenting with hematuria. - HIV positive - Hematuria is not visible during urination but detected upon testing. - Cystoscopy performed two years ago showed no abnormalities. - Family history of bladder cancer with grandfather recently diagnosed. Plan - Order urine cytology to evaluate for malignant cells. - Schedule a CT scan Urogram to assess the kidneys and bladder. - Conduct blood work to evaluate kidney function prior to the CT scan. PFSH Medical History HIV (human immunodeficiency virus infection) ETOH abuse Transaminitis Family History Mother HTN (hypertension) Cancer Social History Household Members: Other Alcohol intake: current Patient Tobacco Use Status: Former Tobacco user Cigarettes Per Day: 2 Office Procedures Cystoscopy Consent Discussed risk and benefit or proposed procedure with the patient. Information consent for procedure given to the patient. Discussed technical aspects, risks, benefits and alternatives in full. Addressed all of the patient's questions and concerns regarding the procedure. The patient demonstrated knowledge and understanding. They wish to proceed with this procedure. Preparation The patient was prepped in the usual manner. A cook specialty was present and in the room. Genitalia was prepped with betadine solution in a sterile manner. Lidocaine Jelly 2% was placed into the urethra and 16Fr flexible Olympus cystoscope was inserted into the meatus after adequate lubrication. Procedure Time out per protocol performed. Speculum used as indicated for adequate visualization of urethra, the flexible cystoscope is passed transurethrally: The bladder was inspected in its entirety with utilization retroflexion displaying: Tumor(s): no suspicious bladder lesions visualized Trabeculation: NA Mucosal Erthema: NA Orifices: normal shape and position Urethra: normal Cystoscopy findings: WNL, no suspicious bladder lesions visualized [id number] DISPOSABLE SCOPE URO-G FLEXIBLE SCOPE Procedure code (CPT) selection complete Office Meds lidocaine HCl 2 % mucosal jelly in applicator Performing Provider: Shreyas Burton MD [facility] Administered by: Tracey Burt RN on 04/24/25 14:09 Dose Route Admin Location Dispensed Lot Number Expiration Date ND Clinical Research Nurse Coordinator 10 mL intra-urethral 20 mL ciprofloxacin HCl 500 mg tablet Performing Provider: Shreyas Burton MD Performing Location: [facility] Administered by: Tracey Burt RN on 04/24/25 14:09 Dose Route Admin Location Dispensed Lot Number Expiration Date NDC Clinical Research Nurse Coordinator 500 mg PO 1 tab phenazopyridine 200 mg tablet Performing Provider: Shreyas Burton MD Performing [facility] Administered by: Tracey Burt RN on 04/24/25 14:09 Dose Route Admin Location Dispensed Lot Number Expiration Date NDC Clinical Research Nurse Coordinator 200 mg PO 1 tab Results AMB Urinalysis, Automated UA Leukoctes 0 Cesar/uL Last Edit by TYLER Matamoros on 04/24/25 14:02 UA Nitrite Negative Last Edit by TYLER Matamoros on 04/24/25 14:02 UA Urobilinogen 0.2 mg/dL Last Edit by TYLER Matamoros on 04/24/25 14:02 UA Protein 0 mg/dL Last Edit by TYLER Matamoros on 04/24/25 14:02 UA pH 6.0 Last Edit by TYLER Matamoros on 04/24/25 14:02 UA Blood 10 Yimi/uL Last Edit by TYLER Matamoros on 04/24/25 14:02 UA Specific [place] 1.015 Last Edit by TYLER Matamoros on 04/24/25 14:02 UA Ketone Negative Last Edit by TYLER Matamoros on 04/24/25 14:02 UA Bilirubin 0 mg/dL Last Edit by TYLER Matamoros on 04/24/25 14:02 UA Glucose 0 mg/dL Last Edit by TYLER Matamoros on 04/24/25 14:02 AMB Urinalysis, Automated UA Leukoctes 0 Cesar/uL Last Edit by Roxann Holman on 04/24/25 17:10 UA Nitrite Negative Last Edit by Roxann Holman on 04/24/25 17:10 UA Urobilinogen 3.5 mg/dL Last Edit by Roxann Holman on 04/24/25 17:10 UA Protein 0 mg/dL Last Edit by Roxann Holman on 04/24/25 17:10 UA pH 6.0 Last Edit by Roxann Holman on 04/24/25 17:10 UA Blood 10 Yimi/uL Last Edit by Roxann Holman on 04/24/25 17:10 UA Specific [place] 1.015 Last Edit by Roxann Holman on 04/24/25 17:10 UA Ketone Negative Last Edit by Roxann Holman on 04/24/25 17:10 UA Bilirubin 0 mg/dL Last Edit by Roxann Holman on 04/24/25 17:10 UA Glucose 0 mg/dL Last Edit by Roxann Holman on 04/24/25 17:10 Results Reviewed Results Reviewed: Laboratory Last Values Urine pH (Auto) 6.0 04/24/25 16:11 Specific [place] (Auto) 1.015 04/24/25 16:11 Urine Protein (Auto) 0 mg/dL 04/24/25 16:11 Glucose (UA)(Auto) 0 mg/dL 04/24/25 16:11 Urine Ketones (Auto) Negative 04/24/25 16:11 Urine Blood (Auto) 10 Yimi/uL 04/24/25 16:11 Urine Nitrite (Auto) Negative 04/24/25 16:11 Urine Bilirubin (Auto) 0 mg/dL 04/24/25 16:11 Urine Urobilinogen (Auto) 3.5 mg/dL 04/24/25 16:11 Leukocyte Esterase (Auto) 0 Cesar/uL 04/24/25 16:11 Urine Cytology Collected: 02/16/25 Location: .LAB Received: 02/17/25 Diagnosis Urine, voided: Negative for high-grade urothelial malignancy. Comment: The cytologic thin prep is cellular with abundant benign squamous epithelial cells and rare benign urothelial cells. There is no evidence of high-grade urothelial malignancy. Clinical History Microscopic hematuria Material Received Urine Gross Description Received is 28 cc of clear orange fluid from which a ThinPrep slide is prepared. Date of Service: 03/13/25 EXAMINATION: CT ABDOMEN AND PELVIS WITHOUT AND WITH CONTRAST CLINICAL INFORMATION: Microscopic hematuria. COMPARISON: None available. TECHNIQUE: Noncontrast CT of the abdomen and pelvis is performed followed by split bolus contrast-enhanced images using 85 mL Omnipaque 350 contrast. Postcontrast imaging is performed during the combined nephrogram and excretion phase. Sagittal and coronal reformatted images were obtained on the technologist's workstation for both the precontrast and postcontrast phases. This CT examination was performed using dose optimization techniques as appropriate, variously including the following: *Automated exposure control *Adjustment of mA and/or kV according to patient size (this includes techniques or standardized protocols for targeted exams where dose is matched to indication/reason for exam; i.e. extremities or head) *Use of iterative reconstruction technique. DLP: 1171 mGy centimeter. FINDINGS: LUNG BASES: No acute airspace disease or gross pulmonary nodules. LIVER, GALLBLADDER, AND BILIARY TREE: Liver measures 24 cm. Heterogeneous enhancement pattern with decreased air cells 5 enhancing parenchyma. The main portal vein and intrahepatic portion of the IVC are patent. No pericholecystic fluid collection or gallbladder wall thickening. No intrahepatic or extrahepatic biliary ductal dilatation. PANCREAS: No focal mass. No main pancreatic ductal dilatation. No peripancreatic fluid collection. SPLEEN: 14 cm. No focal lesion. ADRENAL GLANDS: No nodular lesions. KIDNEYS AND URETERS: No hydronephrosis. No nephrolithiasis. No enhancing renal mass. Normal urinary excretion into the collecting system. The ureters are not dilated. There is no complete IV contrast identified in the distal left ureter. BLADDER: Fluid-filled. No gross wall thickening. GASTROINTESTINAL TRACT: Appendix is normal. Abundant stool, large intestine. No intestinal obstruction pattern. No gross intestinal wall thickening. No pneumatosis intestinalis. No pneumoperitoneum. No ascites. No fluid collections, peritoneal cavity. ABDOMINAL WALL: There is disc abdominal rectus muscles. No gross umbilical hernia. LYMPH NODES: Nonspecific prominent mesenteric and retroperitoneum. VASCULAR: Prominent vessels in the distal intrathoracic paraesophageal gastroesophageal junction. Prominent and patent umbilical vein. No aneurysm or dissection abdominal aorta. No gross calcified plaques. PELVIC VISCERA: Not enlarged prostate gland. OSSEUS STRUCTURES: Multilevel mild thoracolumbar spondylosis without acute fracture or listhesis. Mild degenerative changes in the coxofemoral joints without acute fracture or dislocation. No gross lytic or blastic lesions. IMPRESSION: No hydronephrosis or nephrolithiasis or gross renal mass. Hepatosplenomegaly and probable gastroesophageal varices and patent umbilical vein concerning for cirrhosis without ascites and or portal hypertension.. Assessment & Plan Assessment & Plan (1) Nicotine dependence: Code(s): F17.200 - Nicotine dependence, unspecified, uncomplicated Category: Medical (2) Microscopic hematuria: Code(s): R31.29 - Other microscopic hematuria Category: Medical Plan Microscopic Hematuria. Cont to monitor. FU one year with Nurse practitioner. Orders: Orders AMB Urinalysis Automated 04/24/25 Z13.9 - Encounter for screening, unspecified AMB Cystoscopy 04/24/25 R31.29 - Other microscopic hematuria AMB Urinalysis Automated 04/24/25 Z13.9 - Encounter for screening, unspecified Patient Instructions: The patient had an opportunity to ask questions regarding treatment plan. The patient expressed understanding and agreement with the above treatment plan. The patient is aware they should contact our office by phone for worsening of their current condition or the appearance of new symptoms. Compliance is encouraged with any medications and followup testing that is ordered. It is a privilege to be allowed the opportunity to participate in the urologic care of your patient. If you have any questions or concerns regarding treatment for the above conditions please do not hesitate to contact me. The office telephone contact is [phone]. This note is constructed in part using voice recognition software. While every effort has been made to ensure accuracy food adviser errors may have been included. Yours sincerely, Shreyas Burton MD Coding Level of Care Code Procedure Only Diagnoses Nicotine dependence F17.200 Microscopic hematuria R31.29 CPT Codes Cystoscopy - CPT: [id number] ([id number])
== END 2025-04-24 14:28 | disposition home or self-care (01) ==
LOC: HO.HUSH 13:18
PROVIDERS: PCP Student in an Organized Health Care Education/Training Program; Visit Provider Urology
DX: R31.29 Other microscopic hematuria (principal); Z13.9 Encounter for screening, unspecified
CPT/HCPCS: 52000

== ENCOUNTER → 2025-04-24 13:17 | Outpatient (BNVA) | payer MEDICAID, SELFPAY | PROVIDERS: PCP Student in an Organized Health Care Education/Training Program; Visit Provider Urology | DX: R31.29 Other microscopic hematuria (principal) | CPT/HCPCS: 52000; 81003 ==

== ENCOUNTER 2025-05-06 08:53 | Outpatient (REF) | payer MEDICAID, SELFPAY ==
[2025-05-06 11:39] LABS: Hematocrit 38.1 % (42.0-52.0); Hemoglobin 13.2 g/dl (14.0-18.0); Mean Corpuscular HGB Conc 34.6 g/dl (31.0-36.0); Mean Corpuscular Hemoglobin 32.8 pg (27.0-33.0); Mean Corpuscular Volume 94.8 fL (80.0-98.0); NRBC Abs Auto 0.000 X10*3/uL (0.0-0.012); NRBC Pct Auto 0.0 /100WBC (0.0-0.2); Platelet Count 144 X10*3/uL (160-400); Red Blood Count 4.02 X10*6/uL (4.60-5.80); White Blood Count 4.9 X10*3/uL (4.8-10.8)
[2025-05-06 12:15] LABS: Iron 133 mcg/dL (45-160); Percent Iron Saturation 49 % (15-50); Total Iron Binding Capacity 270 mcg/dL (228-428); Unsaturated Iron Binding 137 ug/dL
[2025-05-06 12:23] LABS: Ferritin 881 ng/mL (20-250)
== END 2025-05-06 08:54 | disposition home or self-care (01) ==
LOC: HO.HHCL 08:53
PROVIDERS: PCP Student in an Organized Health Care Education/Training Program; Referring Provider Nurse Practitioner Psychiatric/Mental Health; Visit Provider Student in an Organized Health Care Education/Training Program
DX: D50.9 Iron deficiency anemia, unspecified (principal); Z79.899 Other long term (current) drug therapy
CPT/HCPCS: 36415; 82728; 83540; 85027